=== PATIENT | male | born 1985 | race Caucasian/White ===

== ENCOUNTER 2017-11-24 16:06 | Emergency (ER) | payer MEDICAID ==
[~2017-11-24] VITALS: Ht 182.9 cm; Wt 85.7 kg
[2017-11-24 16:15] VITALS: Ht 182.9 cm; Wt 85.7 kg
[2017-11-24 16:38] LABS: microscopic required? NO
[2017-11-24 17:00] LABS: BASOPHIL % 0.3 % (0-2); PLATELET COUNT 137 x10^3mcL (130-400); RED CELL DISTRIBUTION WIDTH 13.4 % (11.5-14.5)
[2017-11-24 17:01] LABS: urine erythrocyte NEGATIVE (NEGATIVE)
[2017-11-24 17:13] LABS: CALCIUM 8.1 mg/dL (8.5-10.1); CARBON DIOXIDE 31.3 mmol/L (21-32); CHLORIDE SERUM 104 mmol/L (98-107); CREATININE SERUM 0.9 mg/dL (0.7-1.3); GFR1 > 60 mL/min; GLUCOSE SERUM 88 mg/dL (74-106); POTASSIUM SERUM 3.7 mmol/L (3.5-5.1); SODIUM SERUM 140 mmol/L (136-145)
[2017-11-24 17:15] LABS: ALBUMIN 3.8 g/dL (3.4-5.0); ALKALINE PHOSPHATASE 105 U/L (46-116); ALT/SGPT 54 U/L (16-63); AMYLASE 71 U/L (25-115); AST/SGOT 34 U/L (15-37); BILIRUBIN TOTAL 0.5 mg/dL (0.20-1.00); LIPASE 118 IU/L (73-393); TOTAL PROTEIN, SERUM 6.9 g/dL (6.4-8.2)
[2017-11-24 18:57] VITALS: BP 126/68
== END 2017-11-24 18:57 | disposition home or self-care (01) ==
LOC: ED 16:06
PROVIDERS: Emergency Medicine
DX: R10.31 Right lower quadrant pain (principal)
CPT/HCPCS: J1885; J2405

== ENCOUNTER 2017-12-19 11:25 | Emergency (ER) | payer MEDICAID ==
[~2017-12-19] VITALS: Ht 175.3 cm; Wt 84.8 kg
[2017-12-19 11:32] VITALS: Ht 175.3 cm; Wt 84.8 kg
[2017-12-19 12:31] VITALS: BP 104/67
== END 2017-12-19 12:31 | disposition home or self-care (01) ==
LOC: ED 11:25
DX: R10.9 Unspecified abdominal pain (principal); M54.9 Dorsalgia, unspecified; M79.606 Pain in leg, unspecified

== ENCOUNTER 2018-01-16 16:06 | Emergency (ER) | payer SELFPAY ==
[~2018-01-16] VITALS: Ht 175.3 cm; Wt 84.1 kg
[2018-01-16 16:42] VITALS: Ht 175.3 cm; Wt 84.1 kg
[2018-01-16 18:28] VITALS: BP 130/74
== END 2018-01-16 18:28 | disposition home or self-care (01) ==
LOC: ED 16:06
DX: G89.29 Other chronic pain (principal); R10.9 Unspecified abdominal pain; Z20.2 Contact with and (suspected) exposure to infections with a predominantly sexual mode of transmission
CPT/HCPCS: J0696; J2001

== ENCOUNTER 2018-04-08 22:25 | Emergency (ER) | payer SELFPAY ==
[~2018-04-08] VITALS: Ht 175.3 cm; Wt 88.0 kg
[2018-04-08 22:34] VITALS: BP 148/79; Ht 175.3 cm; Wt 88.0 kg
== END 2018-04-08 23:25 | disposition home or self-care (01) ==
LOC: ED 22:25
DX: Z11.3 Encounter for screening for infections with a predominantly sexual mode of transmission (principal)

== ENCOUNTER 2019-09-30 12:09 | Emergency (ER) | payer MEDICAID ==
[~2019-09-30] VITALS: Ht 175.3 cm; Wt 88.5 kg
[2019-09-30 12:39] VITALS: BP 115/71; Ht 175.3 cm; Wt 88.5 kg
== END 2019-09-30 15:58 | disposition home or self-care (01) ==
LOC: ED 12:09
DX: L03.011 Cellulitis of right finger (principal)

== ENCOUNTER 2020-03-12 19:55 | Emergency (ER) | payer OTHER ==
[~2020-03-12] VITALS: Ht 175.3 cm; Wt 78.6 kg
[2020-03-12 19:59] VITALS: Ht 175.3 cm; Wt 78.6 kg
[2020-03-12 21:06] VITALS: BP 119/74
== END 2020-03-12 20:35 | disposition home or self-care (01) ==
LOC: ED 19:55
DX: M25.562 Pain in left knee (principal)

== ENCOUNTER 2020-04-08 21:52 | Emergency (ER) | payer OTHER ==
[~2020-04-08] VITALS: Ht 175.3 cm; Wt 76.2 kg
[2020-04-08 21:56] VITALS: Ht 175.3 cm; Wt 76.2 kg
[2020-04-08 23:07] VITALS: BP 131/77
== END 2020-04-08 23:07 | disposition home or self-care (01) ==
LOC: ED 21:52
DX: S61.011A Laceration without foreign body of right thumb without damage to nail, initial encounter (principal); W45.8XXA Other foreign body or object entering through skin, initial encounter; Y93.89 Activity, other specified; Y92.89 Other specified places as the place of occurrence of the external cause; Y99.8 Other external cause status
CPT/HCPCS: J2001

== ENCOUNTER 2020-04-10 09:39 | Emergency (ER) | payer OTHER ==
[~2020-04-10] VITALS: Ht 175.3 cm; Wt 81.6 kg
[2020-04-10 09:59] VITALS: Ht 175.3 cm; Wt 81.6 kg
[2020-04-10 10:30] VITALS: BP 130/88
== END 2020-04-10 10:30 | disposition home or self-care (01) ==
LOC: ED 09:39
DX: S61.012D Laceration without foreign body of left thumb without damage to nail, subsequent encounter (principal); X58.XXXD Exposure to other specified factors, subsequent encounter

== ENCOUNTER 2020-07-10 21:11 | Emergency (ER) | payer OTHER, SELFPAY ==
[~2020-07-10] VITALS: Ht 175.3 cm; Wt 86.2 kg
[2020-07-10 21:13] VITALS: Ht 175.3 cm; Wt 86.2 kg
[2020-07-10 23:50] VITALS: BP 124/76
== END 2020-07-10 23:50 | disposition home or self-care (01) ==
LOC: ED 21:11
DX: R51.9 Headache, unspecified (principal); K08.89 Other specified disorders of teeth and supporting structures; R11.10 Vomiting, unspecified; Z20.828 Contact with and (suspected) exposure to other viral communicable diseases; Z98.890 Other specified postprocedural states
CPT/HCPCS: J1885; Q0162; U0003

== ENCOUNTER 2020-09-06 12:04 | Emergency (ER) | payer OTHER ==
[~2020-09-06] VITALS: Ht 175.3 cm; Wt 81.6 kg
[2020-09-06 12:05] VITALS: Ht 175.3 cm; Wt 81.6 kg
[2020-09-06 13:27] VITALS: BP 117/87
== END 2020-09-06 13:27 ==
LOC: ED 12:04
DX: S62.620A Displaced fracture of middle phalanx of right index finger, initial encounter for closed fracture (principal); Z98.890 Other specified postprocedural states; X58.XXXA Exposure to other specified factors, initial encounter; Y93.89 Activity, other specified; Y92.89 Other specified places as the place of occurrence of the external cause; Y99.8 Other external cause status

== ENCOUNTER 2020-09-06 12:04 | Emergency (ER) | payer OTHER | END 2020-09-06 13:27 | LOC: ED 12:04 | DX: Z02.89 Encounter for other administrative examinations (principal) ==